=== PATIENT | male | born 1985 | race Caucasian/White ===

== ENCOUNTER 2016-11-05 21:07 | Emergency (ER) | payer OTHER ==
--- NOTE | ~2016-11-05 | ER ---
Unit #: [id number] #: [id number] Patient: STEVIE MONTOYA [id number] [address] [address] [id number] E MR#: [id number] NAME: STEVIE MONTOYA ROOM: Sex: M Age: 31 : 1985 Service Date: 11/05/2016 Attending Physician: Cody Larson M.D. Primary Care Physician: No Primary Care Physician EMERGENCY DEPT PHYSICIAN NOTE Please see the written T-sheet for the full details of the encounter. Mr. Montoya is a 31-year-old man who presented to the emergency department tonight after two reported seizures at home. Family stated that the patient lost consciousness and had generalized tonic clonic movements. The second seizure he hit his head against the toilet and sustained a laceration to his eyebrow and bridge of his nose. The family reported that the patient did demonstrate postictal confusion and decreased responsiveness. Upon interview, the patient stated that he had one previous seizure several years ago and he was seen in this emergency department for it. At that time, head CT was performed which showed no acute disease. He was advised to return to the emergency department should he have any additional seizures. However, the patient stated that he had no seizures since that incident until [facility]. My question to patient (1) . Dictated by... Brenda Murray/haroon TD: 11/06/2016 05:39 JOB #: [id number] EMERGENCY DEPT PHYSICIAN NOTE Page 1 of 1 X Cody Larson MD EMERGENCY DEPARTMENT REPORT
--- NOTE | ~2016-11-05 | CT71 ---
[facility] A Service of [facility] RADIOLOGY TEXT RESULTS PATIENT: STEVIE MONTOYA LOCATION: [facility] : 85 UNIT #: [id number] AGE: [address]: Cody Larson MD SEX: M ORDER DR: [id number] [facility]. [place], [place] [address] [id number] E MR#: [id number] Acc #: [id number] NAME: STEVIE MONTOYA. : 1985 SEX: M STUDY DATE/TIME: 11/05/2016 23:01 UNIT: [facility] ROOM: STUDY DESCRIPTION: CT Head Wo Contrast Attending Physician: Cody Larson M.D. Ordering Physician: Cody Larson M.D. Primary Care Physician: Primary Care Physician No MEDICAL IMAGING REPORT This report is preliminary unless electronic signature is present EXAM CT head, noncontrast, 11/05/16 HISTORY 31-year-old male in the ED after a seizure today. Head injury. He complains of weakness. TECHNIQUE CT examination of the head was performed without IV contrast. This CT exam was performed with one or more of the following radiation dose reduction techniques: Automatic exposure control, adjustment of mA and/or kV according to patient size, and iterative reconstruction. FINDINGS The exam shows soft tissue contusion over the bridge of the nose to the right of midline. No visible skull fracture. Intracranially, the examination is negative. No evidence of intracranial hemorrhage, cerebral edema, mass effect or additional abnormality. IMPRESSION 1. No acute intracranial abnormality. 2. Soft tissue contusion over the bridge of the nose on the right. No visible skull fracture. Dictated by... Orlin Nicolas M.D. THIS IS AN ELECTRONICALLY VERIFIED REPORT Orlin Nicolas M.D. at 11/06/2016 6:04 AM THA/klaus [facility] A Service of [facility] RADIOLOGY TEXT RESULTS PATIENT: STEVIE MONTOYA LOCATION: [facility] : 85 UNIT #: [id number] AGE: [address]: Cody Larson MD SEX: M ORDER DR: TD: 11/05/2016 23:48 JOB #: [id number] MEDICAL IMAGING REPORT Page 1 of 1 COPY
[~2016-11-05 21:07] MED LIST: AMOXICILLIN PO; DOCUSATE SODIU100 MG PO; DOLOBID500 MG PO; ERY-TAB500 MG PO; FLEXERIL10 MG PO; KEFLEX500 M1 PO; KETOPROFEN PO; LIDOCAINE PO; LORTAB 5/500 TA1 TA1 PO; MAGIC MOUTHWASH PO; MEDROL PO; MIDRIN CAPSULE1 CA1 PO; NAPROXEN PO; NO MEDICATIONS; PEN-VEE K PO; PENICILLIN PO; PREDNISONE10 MG; PREDNISONE10 MG PO; ROBITUSSIN DAC PO; SUBOXONE 12 MG1 EACH; TOBREX5 ML OP; TRAMADOL HCL50 M2 PO; ULTRACET TABLET1 TAB PO; ULTRAM PO; VICODIN 5/500 T1 TAB PO; [UNRECOGNIZED DRUG - OTHER]; [UNRECOGNIZED DRUG - REMARK]
[2016-11-05 23:17] LABS: BASOPHIL% 0.2 % (0-2.5); EOSINOPHIL% 0.3 % (0.0-7.0); HEMATOCRIT 47.1 % (38.0-50.0); HEMOGLOBIN 16.2 gm/dL (13.0-16.0); LYMPHOCYTE# 1.6 X10e3 (1.0-3.5); LYMPHOCYTE% 17.5 % (17.0-45.0); MEAN CELL VOLUME 90.5 FL (83-96); MEAN CORPUSCULAR HEMOGLOBIN 31.2 PG (28-34); MEAN CORPUSCULAR HGB CONC 34.4 g/dL (30-36); MEAN PLATELET VOLUME 8.9 FL (6.5-11.5); MONOCYTE# 0.3 X10e3 (0-1.0); MONOCYTE% 3.2 % (3.0-12.0); NEUTROPHIL# 7.2 X10e3 (1.5-7.1); NEUTROPHIL% 78.8 % (40-75); PLATELET COUNT 225 X10e3 (140-420); RED CELL DISTRIBUTION WIDTH 13.2 % (11.0-15.5); WHITE BLOOD COUNT 9.1 X10e3 (4.0-10.5)
[2016-11-05 23:18] LABS: DIFF IND NO
[2016-11-05 23:41] LABS: ALBUMIN SERUM 5.2 g/dL (3.5-5.0); ALKALINE PHOSPHATASE 115 U/L (32-92); ALT (SGPT) 16 U/L (10-40); AST (SGOT) 31 U/L (10-42); BILIRUBIN,TOTAL 0.7 mg/dL (0.2-2.0); BLOOD UREA NITROGEN 16 mg/dL (9-23); CALCIUM SERUM 9.6 mg/dL (8.4-10.2); CARBON DIOXIDE 22 mmol/L (22-31); CHLORIDE 97 mmol/L (100-111); CREATININE SERUM 1.3 mg/dL (0.6-1.4); GLOM FILT RATE Estimated 72.7 mL/min (>60); GLUCOSE FASTING 124 mg/dL (70-110); POTASSIUM 3.5 mmol/L (3.5-5.1); PROTEIN TOTAL SERUM 8.5 g/dL (6.0-8.3); SODIUM 136 mmol/L (135-145)
[2016-11-05 23:44] LABS: ALCOHOL BLOOD <5 mg/dL (0); BILIRUBIN, DIRECT <0.1 mg/dL (0.0-0.2); BILIRUBIN,INDIRECT 0.6 mg/dL (0.0-0.9)
[2016-11-06 00:07] LABS: URINE SOURCE CLEAN CATCH
[2016-11-06 00:12] LABS: URINE APPEARANCE CLOUDY; URINE BILIRUBIN NEG (NEG); URINE BLOOD NEG (NEG); URINE COLOR YELLOW; URINE GLUCOSE NEG (NEG); URINE KETONE TRACE (NEG); URINE LEUKOCYTE ESTERASE NEG (NEG); URINE NITRATE NEG (NEG); URINE PH 5.5 (5-8); URINE PROTEIN 1+ (NEG); URINE SPECIFIC GRAVITY 1.032 (1.003-1.035)
[2016-11-06 00:14] LABS: CULTURE INDICATED? YES; URBCS1 AUWI 0-2 /[HPF] (0-2); URINE BACTERIA AUWI NEG (NEGATIVE); URINE SQUAMOUS EPITHELIAL CELL OCC /[HPF]
[2016-11-06 00:22] LABS: U HYALINE CASTS AUWI 0-2 /[LPF]; URINE SPERM PRESENT
[2016-11-06 00:34] LABS: AMPHETAMINE POS (NEG); BARBITURATES NEG (NEG); BENZODIAZEPINES NEG (NEG); COCAINE NEG (NEG); MARIJUANA POS (NEG); OPIATES NEG (NEG); TRICYCLIC ANTIDEPRESSANTS NEG (NEG); U METHADONE NEG (NEG)
== END 2016-11-06 01:05 | disposition home or self-care (01) ==
LOC: CED 21:07
PROVIDERS: Emergency Medicine
DX: G40.409 Other generalized epilepsy and epileptic syndromes, not intractable, without status epilepticus (principal); F17.200 Nicotine dependence, unspecified, uncomplicated; F15.10 Other stimulant abuse, uncomplicated
CPT/HCPCS: 36415; 70450; 80048; 80076; 80307; 81003; 82947; 85025; 87086; 96365; 96375; 99284; G0480; J1953; J2405